=== PATIENT | male | born 1985 | race Caucasian/White ===

== ENCOUNTER 2023-09-30 02:33 | Emergency (ER) | payer BC, SELFPAY ==
[~2023-09-30] VITALS: Ht 175.3 cm; Wt 125.9 kg
[2023-09-30] MEDS ORDERED: NS 1,000 ML IV ONE (03:15)
[2023-09-30] MEDS ORDERED: KETOROLAC 30 MG/ML 1ML VIAL IV ONE (03:15)
[2023-09-30] MEDS ORDERED: MORPHINE 4 MG/ML 1ML VIAL IV ONE (03:45)
[2023-09-30 03:46] LABS: BASO # 0.1 10^3/uL (0.0-0.2); BASO % 0.6 % (0.0-1.0); EOS # 0.1 10^3/uL (0.0-0.5); EOS % 1.2 % (0.0-3.0); HEMATOCRIT 44.3 % (42.0-52.0); HEMOGLOBIN 14.8 g/dl (13.5-17.5); LYMPH % 17.4 % (24.0-44.0); MEAN CORPUSCULAR HEMOGLOBIN 29.7 pg (27.0-33.0); MEAN CORPUSCULAR HGB CONC 33.4 g/dl (32.0-36.5); MEAN CORPUSCULAR VOLUME 88.8 fl (80.0-96.0); MONO # 0.7 10^3/uL (0.0-0.8); MONO % 5.7 % (2.0-8.0); NEUTROPHILS # 8.7 10^3/uL (1.5-8.5); NEUTROPHILS % 74.5 % (36.0-66.0); PLATELET COUNT, AUTOMATED 318 10^3/uL (150-450); RED BLOOD COUNT 4.99 10^6/uL (4.30-6.10); WHITE BLOOD COUNT 11.7 10^3/uL (4.0-10.0)
[2023-09-30 04:15] LABS: BLOOD UREA NITROGEN 28 MG/DL (9-23); CALCIUM LEVEL 10.2 MG/DL (8.5-10.1); CARBON DIOXIDE LEVEL 28 MMOL/L (20-31); CHLORIDE LEVEL 104 MMOL/L (98-107); CREATININE FOR GFR 1.08 MG/DL (0.70-1.30); GLOMERULAR FILTRATION RATE > 60.0 (>60); GLUCOSE, FASTING 147 MG/DL (60-100); POTASSIUM SERUM 4.3 MMOL/L (3.5-5.1); SODIUM LEVEL 141 MMOL/L (136-145)
[2023-09-30] MEDS ORDERED: hydrALAZINE 20MG/ML 1ML VIAL IV STA (05:34)
[2023-09-30] MEDS ORDERED: AMLO25TA PO (06:58)
[2023-09-30] MEDS ORDERED: CARVedilol 12.5 MG TAB PO ONE ×3 (08:05→11:10)
[2023-09-30] MEDS ORDERED: FUROSEMIDE 40MG/4ML VIAL IV ONE (09:10)
[2023-09-30 09:28] VITALS: BP 204/130
[2023-09-30] MEDS ORDERED: CARV25TA PO (11:13)
[2023-09-30] MEDS ORDERED: LISI20TA33 PO (11:13)
[2023-09-30] MEDS ORDERED: CHLO125TA PO ×2 (11:14→11:15)
[2023-09-30 11:36] VITALS: BP 160/107; TEMP 98.6; O2SAT 96
== END 2023-09-30 11:41 | disposition home or self-care (01) ==
LOC: M ED 02:33
DX: N20.1 Calculus of ureter (principal); N13.30 Unspecified hydronephrosis; I10 Essential (primary) hypertension; Z87.442 Personal history of urinary calculi
CPT/HCPCS: 74176; 80048; 81001; 85025; 93005; 96361; 96374; 96375; 99285; J0360; J1885; J1940